=== PATIENT | female | born 1945 | race Caucasian/White ===

== ENCOUNTER 2016-03-12 14:31 | Emergency (ER) | payer MEDICARE, OTHER ==
[~2016-03-12] VITALS: Ht 170.2 cm; Wt 84.1 kg
[~2016-03-12 14:31] MED LIST: CLON1TAB PO; GABA300C16 PO; MELO-109 PO; TRAM50TA2 PO
[2016-03-12 14:32] VITALS: Ht 170.2 cm; Wt 84.1 kg
[2016-03-12] MEDS ORDERED: CLON2TAB3 PO (15:53)
[2016-03-12] MEDS ORDERED: TRAM-40 PO (15:54)
[2016-03-12] MEDS ORDERED: ONDANSETRON 4 MG INJ IV STA (15:54)
[2016-03-12] MEDS ORDERED: CELE200C PO (15:54)
[2016-03-12] MEDS ORDERED: morphine 4 MG/ML VIAL IV STA (15:54)
[2016-03-12] MEDS ORDERED: ROSU20TA PO (15:54)
[2016-03-12] MEDS ORDERED: ERGO500037 PO (15:55)
[2016-03-12] MEDS ORDERED: FURO-110 PO (15:56)
[2016-03-12] MEDS ORDERED: MECL-77 PO (15:56)
[2016-03-12] MEDS ORDERED: LISI-313 PO (15:56)
[2016-03-12] MEDS ORDERED: IBUP-1542 PO (15:57)
[2016-03-12] MEDS ORDERED: GABA300C16 PO (15:57)
[2016-03-12] MEDS ORDERED: LETR2.5T PO (15:58)
[2016-03-12] MEDS ORDERED: DIPHTH/TET/ACEL PERTUSS (ADULT) 0.5 ML VIAL IM* ONE (16:00)
--- NOTE | 2016-03-12 16:56 | RADRPT ---
PROCEDURE: XR Lumbar Spine. CLINICAL INDICATION: Low back pain following a fall. TECHNIQUE: AP, cone-down lateral, and lateral views of the lumbar spine were obtained in the supin e position. COMPARISON: None. FINDINGS: Mineralization is within normal limits. Vertebral bodies are normal in height. No fracture is iden tified. Lumbar lordosis is preserved. Moderate multilevel anterior spondylosis is present most pron ounced at L2-3 No vertebral subluxation is seen. The intervertebral discs are normal in height exce pt for L4-5 and L5-S1 which are mildly narrowed. No obvious posterior element abnormality is presen t. Paraspinal contours are unremarkable. RPTAT:HJJR IMPRESSION: Multilevel lumbar spondylosis and mild disk narrowing at L4-5 and L5-S1 without evidence of acute po st traumatic abnormality. Physician Kim Date Time Electronically viewed and signed by Physician Kim on 03/12/2016 16:55 /
--- NOTE | 2016-03-12 16:56 | RADRPT ---
PROCEDURE: XR Elbow. CLINICAL INDICATION: Post traumatic left elbow pain TECHNIQUE: AP, lateral and oblique views of the left elbow performed. COMPARISON: None. FINDINGS: There is normal mineralization and alignment. No fracture or osseous lesion is identified. The dista l humerus, proximal radius and proximal ulna are unremarkable, and the joint spaces are preserved. M ild soft tissue swelling posterior to the proximal ulna is present. There is no evidence of a joint effusion. RPTAT:HJJR IMPRESSION: Mild posterior soft tissue swelling without acute osseous abnormality of the left elbow. Physician Kim Date Time Electronically viewed and signed by Physician Kim on 03/12/2016 16:56 /
--- NOTE | 2016-03-12 16:57 | RADRPT ---
PROCEDURE: XR Hip. CLINICAL INDICATION: Status post fall with right hip pain TECHNIQUE: AP and frog lateral views of the right hip were performed. COMPARISON: None. FINDINGS: There is normal mineralization and alignment. No fracture or osseous lesion is identified. The femor al head is normal in contour and the joint space preserved. The soft tissues are unremarkable. . RPTAT:HJJR IMPRESSION: Unremarkable right hip series. Physician Kim Date Time Electronically viewed and signed by Jose Pennington Physician on 03/12/2016 16:57 /
--- NOTE | 2016-03-12 17:13 | RADRPT ---
PROCEDURE: CT Chest without contrast. CLINICAL INDICATION: Chest pain. TECHNIQUE: Volumetrically acquired images of the thorax without intravenous contrast were reformat yoel in the axial, sagittal, and coronal planes. Radiation dose: CTDIvol (mGy) = 15.5; total DLP mGy-cm = 107. One or more of the following radiation dose techniques were used: -Automated exposure control. -Adjust of the mA and/or kV according to patient size. -Use of iterative reconstruction technque. COMPARISON: None. FINDINGS: Normal heart size without pericardial effusion. There are diffuse atherosclerotic aortic calcificat ions without aneurysm. There is an enlarged left lobe of the thyroid gland, likely on the basis of a large thyroid nodule. No mediastinal or hilar lymphadenopathy. There are postsurgical changes reflecting a prior right ax illary lymph node dissection. No focal consolidation, pneumothorax, or pleural effusions. The included upper abdomen demonstrates multiple small gallstones without gallbladder wall thickenin g or inflammation. No concerning bone lesions. IMPRESSION: 1. No intra-thoracic mass, lymphadenopathy, or focal acute infiltrate. No acute intrathoracic proc ess. 2. Large nonspecific nodule arising from the left lobe of the thyroid gland, consider correlation w ith thyroid sonography in the non-acute setting. RPTAT: EE .Juan Sam MD, MD Date Time Electronically viewed and signed by .Juan Sam MD, on 03/12/2016 17:17 .C/
--- NOTE | 2016-03-12 17:13 | RADRPT ---
PROCEDURE: CT Brain without contrast. CLINICAL INDICATION: Pain, headache TECHNIQUE: Routine CT scan of the brain was performed on a high resolution multi detector scanner without intravenous contrast. One or more of the following dose reduction techniques were used: Auto mated exposure control; Adjustment of the mA and/or kV according to patient size; Use of iterative r econstruction technique. CTDI = 40 mGy. DLP = 630 mGy-cm. COMPARISON: CT brain 11/27/2007 FINDINGS: Hemorrhage: No evidence of intracranial hemorrhage. Acute ischemic changes: No evidence of acute ischemic changes. Mass effect/Midline shift: None. Parenchymal volume: Mild central parenchymal volume loss is evident. Ventricular system: Concordant with parenchymal volume. Chronic changes: 2 mm chronic appearing lacunar infarct of the right lentiform nucleus. There are s cattered areas of low attenuation change within the supratentorial white matter most compatible with moderate chronic microvascular ischemic changes. Idiopathic appearing calcifications of the bilate ral basal ganglia are present. Atherosclerotic calcifications of the cavernous portions of both internal carotid arteries are prese nt. Extracranial soft tissues: Unremarkable. Calvarium: No fractures. Paranasal sinuses: Visualized paranasal sinuses are clear. Mastoid air cells: Visualized mastoid air cells are clear. IMPRESSION: No acute intracranial abnormalities. Moderate chronic-appearing microvascular ischemic changes of the supratentorial white matter, increa sed from previous examination. RPTAT: AADD .Patric Flowers MD, Date Time Electronically viewed and signed by .Patric Flowers MD, on 03/12/2016 17:13 .B/
--- NOTE | 2016-03-12 17:42 | ERD ---
ER Documentation Chief Complaint Date/Time DATE: 03/12/16 TIME: 17:31 Chief Complaint L rib pain s/p mech fall last night HPI Patient is a 70-year-old female who states that she was standing next to her bed last night when she lost her balance and fell. She complains of left chest wall pain, head pain, low back pain, left elbow pain, and right hip pain. She says movement increases the pain, staying still helps. She says that she feels short of breath. She has not coughed up any blood. She denies any fever, sputum production, rhinorrhea, sore throat, or otalgia. She says she lost her balance because she tripped. She denies any loss of her bowel or bladder. Denies any paresthesia or focal weakness. She has an abrasion on her left elbow which she put a Band-Aid on. She denies any other lacerations or abrasions. She says she is just generally sore all over. She denies any abdominal pain. The remainder of the systems are negative. ROS All systems reviewed and are negative except as per history of present illness. Medications Home Meds Reported Medications Letrozole* (Letrozole*) 2.5 Mg Tablet, 2.5 MG PO DAILY, TAB 03/12/16 Gabapentin* (Gabapentin*) 300 Mg Capsule, 300 MG PO QHS, #60 CAP 03/12/16 Ibuprofen* (Motrin*) 600 Mg Tab, 600 MG PO Q8H Y for PAIN, TAB 03/12/16 Furosemide* (Lasix*) 20 Mg Tablet, 20 MG PO DAILY, TAB 03/12/16 Meclizine Hcl* (Meclizine Hcl*) 25 Mg Tablet, 25 MG PO BID Y for DIZZINESS, TAB 03/12/16 Lisinopril* (Lisinopril*) 5 Mg Tablet, 5 MG PO DAILY, #30 TAB 03/12/16 Ergocalciferol (Vitamin D2) (VITAMIN D2) 50,000 Unit Capsule, 18660 UNIT PO Q7 DAYS, CAP 03/12/16 Rosuvastatin Calcium* (Crestor*) 20 Mg Tablet, 20 MG PO QHS, #30 TAB 03/12/16 Celecoxib* (Celebrex*) 200 Mg Capsule, 200 MG PO DAILY, CAP 03/12/16 Tramadol Hcl* (Ultram*) 50 Mg Tablet, 100 MG PO Q8, TAB 03/12/16 Clonazepam* (Clonazepam*) 2 Mg Tablet, 2 MG PO QHS, TAB 03/12/16 Discontinued Reported Medications Gabapentin* (Gabapentin*) 300 Mg Capsule, 300 MG PO BID 04/29/12 Meloxicam* (Meloxicam*) 7.5 Mg Tablet, 7.5 MG PO DAILY 04/29/12 Tramadol HCl (Tramadol HCl) 50 Mg Tablet, 50 MG PO TID ONE AND HALF TAB 04/29/12 Clonazepam* (Clonazepam* ODT) 1 Mg/Tab Tab.rapdis, 1 MG PO HS ONE AND HALF TAB 04/29/12 Allergies Allergies: Coded Allergies: No Known Drug Allergies (Verified Allergy, Mild, 03/12/16) PMhx/Soc History of Surgery: No (DENIES) Anesthesia Reaction: No Hx Neurological Disorder: Yes (DIZZINESS) Hx Respiratory Disorders: No Hx Cardiac Disorders: Yes (HTN, HIGH CHOL) Hx Miscellaneous Medical Probl: No Hx Alcohol Use: No Hx Substance Use: No Hx Tobacco Use: No Smoking Status: Never smoker FmHx Family History: coronary disease, diabetes Physical Exam Vitals Vital Signs Date Time Temp Pulse Resp B/P Pulse Ox O2 Delivery O2 Flow Rate FiO2 03/12/16 14:32 98.5 80 20 178/88 96 Physical Exam Const: [] Well-developed well-nourished female lying on the bed stating that the left side of her chest hurts Head: Atraumatic normocephalic Eyes: Normal Conjunctiva ENT: Normal External Ears, Nose and Mouth. Neck: Full range of motion..~ No meningismus. Resp: Clear to auscultation bilaterally, patient reports tenderness to palpation left chest wall Cardio: Regular rate and rhythm, no murmurs Abd: Soft, non tender, non distended. Normal bowel sounds Skin: No petechiae or rashes Back: No midline or flank tenderness Ext: No cyanosis, or edema, patient reports tenderness to palpation in the posterior right hip, patient has full range of motion of both lower extremities , no deformities noted, patient has an abrasion on the left posterior elbow, she has full range of motion of the elbow Neur: Awake and alert oriented 3, GCS of 15, moves all extremities equally, nonfocal Psych: Normal Mood and Affect Results 24 hrs Current Medications Medications (Trade) Dose Ordered Sig/Derek Route PRN Reason Start Time Stop Time Status Last Admin Dose Admin Morphine Sulfate (morphine) 4 mg ONCE STAT IV 03/12/16 15:54 03/12/16 15:57 DC 03/12/16 16:13 Ondansetron HCl (Zofran Inj) 4 mg ONCE STAT IV 03/12/16 15:54 03/12/16 15:57 DC 03/12/16 16:12 Diphtheria/ Tetanus/Acell Pertussis (Adacel) 0.5 ml ONCE ONCE IM* 03/12/16 16:00 03/12/16 16:01 DC 03/12/16 16:12 Procedures/MDM Differential includes but is not limited to musculoskeletal trauma, rule out fracture, rule out pneumothorax, rule out pulmonary contusion, rule out rib fracture, rule out rib contusion, soft tissue contusion, abrasion, closed head injury, concussion, fall 1735: pt still complains of pain but appears stable for discharge home. Departure Diagnosis: Primary Impression: Rib pain Additional Impressions: Fall Encounter type: initial encounter Qualified Code: W19.XXXA - Fall, initial encounter Abrasion of elbow, left Encounter type: initial encounter Qualified Code: S50.312A - Abrasion of elbow, left, initial encounter Head injury Encounter type: initial encounter Qualified Code: S09.90XA - Head injury, initial encounter Acute right hip pain Back pain Back pain location: low back pain Chronicity: acute Back pain laterality: midline Sciatica presence: without sciatica Qualified Code: M54.5 - Acute midline low back pain without sciatica Condition: Good Patient Instructions: Back Pain (Acute Or Chronic), Fall Prevention, Rib Contusion Additional Instructions: Please schedule a follow up appointment with your primary care doctor. You will continue to have discomfort for the next 7-14 days but should be improving. Please see your doctor in case you need a refill of medications or a referral to physical therapy. Return to the emergency department for any new/worse symptoms. JACEK UNGER Mar 12, 2016 17:42
[2016-03-12] MEDS ORDERED: HYDR-906 PO (17:44)
[2016-03-12] MEDS ORDERED: CYCL-319 PO (17:44)
[2016-03-12] MEDS ORDERED: ETOD300C26 PO (17:45)
[2016-03-12] MEDS ORDERED: ONDA4TAB8 PO (17:45)
[2016-03-12] MEDS ORDERED: HYDROCODONE/APAP (5/325) TAB PO ONE (18:30)
[2016-03-12 18:31] VITALS: BP 150/83; PULSE 85; RESP 18; TEMP 98.5
== END 2016-03-12 18:33 | disposition home or self-care (01) ==
LOC: E/R 14:31
DX: S29.9XXA Unspecified injury of thorax, initial encounter (principal); S50.312A Abrasion of left elbow, initial encounter; S79.911A Unspecified injury of right hip, initial encounter; S39.92XA Unspecified injury of lower back, initial encounter; I10 Essential (primary) hypertension; R51 Headache; W18.39XA Other fall on same level, initial encounter; Y92.009 Unspecified place in unspecified non-institutional (private) residence as the place of occurrence of the external cause; Z23 Encounter for immunization
CPT/HCPCS: 70450; 71250; 72100; 73080; 73510; 90715; J2270; J2405; 90471; 96374; 96375